=== PATIENT | male | born 1975 | race Caucasian/White ===

== ENCOUNTER → 2017-02-14 | Outpatient (CLI) | payer OTHER ==
--- NOTE | 2017-02-14 09:03 | RAD ---
Chest, 2 views, 02/14/2017: History: Cough, fatigue, chest congestion The heart size and pulmonary vascularity are normal. The lungs are clear. There is no evidence of pleural fluid. IMPRESSION: No acute cardiopulmonary abnormality is detected.
== END | disposition home or self-care (01) ==
LOC: DXRADRC 08:50
PROVIDERS: ATTEND Physician Assistant Medical
DX: R09.89 Other specified symptoms and signs involving the circulatory and respiratory systems (principal); R05 Cough; R53.83 Other fatigue
CPT/HCPCS: 71020